=== PATIENT | male | born 1985 | race Two or more races ===

== ENCOUNTER 2023-08-05 07:16 | Emergency (ER) | payer SELFPAY ==
[~2023-08-05] VITALS: Ht 167.6 cm; Wt 75.0 kg
[2023-08-05 07:33] VITALS: O2SAT 99
[2023-08-05 08:29] VITALS: BP 130/71; PULSE 88; RESP 18; TEMP 98.2
== END 2023-08-05 08:38 | disposition home or self-care (01) ==
LOC: ER 07:16
DX: S60.466A Insect bite (nonvenomous) of right little finger, initial encounter (principal); W57.XXXA Bitten or stung by nonvenomous insect and other nonvenomous arthropods, initial encounter; Y93.89 Activity, other specified; Y92.89 Other specified places as the place of occurrence of the external cause; Y99.8 Other external cause status
CPT/HCPCS: 99281